=== PATIENT | female | born 1945 | race Caucasian/White ===

== ENCOUNTER 2021-01-01 16:53 | Inpatient (IN) ==
[2021-01-01 17:33] LABS: Basophils # 0.1 K/mcL (0.0-0.2); Basophils % 0.2 %; Hematocrit 40.1 % (35.3-44.9); Hemoglobin 13.4 g/dL (11.5-15.4); Immature Granulocytes % 1.5 % (0-4); Lymphocytes # 1.6 K/mcL (0.6-4.6); Lymphocytes % 5.6 %; Mean Corpuscular HGB Conc 33.4 g/dL (31.6-35.5); Mean Corpuscular Hemoglobin 33.2 pg (28.0-33.3); Mean Corpuscular Volume 99.3 fL (83.0-100.0); Mean Platelet Volume 8.9 fL (9.4-12.4); Monocytes # 1.2 K/mcL (0.0-1.3); Monocytes % 4.3 %; Neutrophils # 24.8 K/mcL (1.6-8.9); Platelet Count 285 K/mcL (140-400); Red Blood Count 4.04 M/mcL (3.82-4.97); Red Cell Distribution Width 13.2 % (11.5-14.5); Segmented Neutrophils % 88.4 %
[2021-01-01 17:51] LABS: Alanine Aminotransferase 30 Units/L (7-52); Albumin 3.8 g/dL (3.5-5.7); Albumin/Globulin Ratio 1.2 (1.1-2.2); Alkaline Phosphatase 70 Units/L (34-104); Aspartate Amino Transferase 26 Units/L (13-39); BUN/Creatinine Ratio 28 (6-26); Bilirubin,Total 1.8 mg/dL (0.3-1.0); Blood Urea Nitrogen 27 mg/dL (8-23); Calcium 8.8 mg/dL (8.6-10.3); Carbon Dioxide 27 mEq/L (23-29); Chloride 93 mEq/L (98-107); Globulin 3.2 g/dL (2.4-3.5); Glucose 87 mg/dL (70-105); Macrocytosis Present (Not Present); Magnesium 1.5 mg/dL (1.6-2.6); Osmolality,Calculated 274 (280-300); Platelet Estimate Normal (Normal); Potassium 4.2 mEq/L (3.5-5.1); Sodium 130 mEq/L (136-145); eGFR For African Americans > 60 (> 60); eGFR For Non-African Americans 56 (> 60)
[2021-01-01 18:28] LABS: INR 1.3; Prothrombin Time 15.2 Seconds (9.4-12.1)
[2021-01-01 18:31] LABS: Activated Partial Thrombo Time 26.6 Seconds (26.0-36.0)
[2021-01-01 18:48] LABS: Bilirubin,Urine Negative (Negative); Blood,Urine Trace-intact (Negative); Clarity,Urine Slightly Cloudy (Clear); Glucose,Urine (UA) 100 mg/dL (Normal); Ketones,Urine Negative (Negative); Leukocyte Esterase,Urine Small (Negative); Nitrite,Urine Negative (Negative); Protein,Urine 30 mg/dL (Neg-Trace); Specific Gravity,Urine >= 1.030 (1.010-1.025); Urobilinogen,Urine Normal (Normal)
[2021-01-01 18:53] LABS: Color,Urine Yellow (Yellow)
[2021-01-01 18:55] LABS: Bacteria,Urine Few per hpf (None-Few); RBC,Urine 0-3 per hpf (0-3); Squamous Epithelial Cell,Urine Few per hpf (None-Few)
[2021-01-01] MEDS ORDERED: MetroNIDAZOLE 500 MG/100 ML 500 MG/100 ML BAG IVPB ONE (21:03)
[2021-01-01] MEDS ORDERED: Piperacillin/Tazobactam 3.375 GM in 0.9 % Sodium Chloride Mini Bag 100 ML IVPB ONE (21:03)
[2021-01-01] MEDS ORDERED: Naloxone 0.4 MG/ML INJ IVP PRN (22:02)
[2021-01-01] MEDS: Ondansetron 4 MG/2 ML VIAL IVP PRN (22:12)
[2021-01-01] MEDS: 0.9 % Sodium Chloride 1,000 ML IVC SCH (22:30)
[2021-01-01] MEDS: Acetaminophen 325 MG TABLET PO PRN (22:30)
[2021-01-02 04:53] LABS: Basophils # 0.1 K/mcL (0.0-0.2); Basophils % 0.3 %; Eosinophils # 0.1 K/mcL (0.0-0.6); Eosinophils % 0.5 %; Hematocrit 42.7 % (35.3-44.9); Hemoglobin 13.8 g/dL (11.5-15.4); Immature Granulocytes % 4.6 % (0-4); Lymphocytes # 1.4 K/mcL (0.6-4.6); Lymphocytes % 5.3 %; Mean Corpuscular HGB Conc 32.3 g/dL (31.6-35.5); Mean Corpuscular Hemoglobin 32.7 pg (28.0-33.3); Mean Corpuscular Volume 101.2 fL (83.0-100.0); Mean Platelet Volume 8.8 fL (9.4-12.4); Monocytes # 1.1 K/mcL (0.0-1.3); Monocytes % 4.2 %; Platelet Count 250 K/mcL (140-400); Red Blood Count 4.22 M/mcL (3.82-4.97); Red Cell Distribution Width 13.2 % (11.5-14.5); Segmented Neutrophils % 85.1 %; White Blood Count 25.8 K/mcL (4.3-11.1)
[2021-01-02 04:58] LABS: Macrocytosis Present (Not Present); Platelet Estimate Normal (Normal)
[2021-01-02 05:07] LABS: BUN/Creatinine Ratio 26 (6-26); Blood Urea Nitrogen 23 mg/dL (8-23); Calcium 8.9 mg/dL (8.6-10.3); Carbon Dioxide 28 mEq/L (23-29); Chloride 97 mEq/L (98-107); Glucose 97 mg/dL (70-105); Osmolality,Calculated 282 (280-300); Potassium 4.3 mEq/L (3.5-5.1); Sodium 134 mEq/L (136-145); eGFR For African Americans > 60 (> 60); eGFR For Non-African Americans > 60 (> 60)
[2021-01-02] MEDS: Acetaminophen 325 MG TABLET PO PRN ×2 (05:56→20:17)
[2021-01-02] MEDS: 0.9 % Sodium Chloride 1,000 ML IVC SCH ×3 (05:57→20:16)
[2021-01-02] MEDS ORDERED: *HR* Glimepiride 2 MG TABLET PO SCH (08:00)
[2021-01-02] MEDS: hydrALAZINE 25 MG TABLET PO SCH ×2 (08:53→20:17)
[2021-01-02] MEDS: Isosorbide MONOnitrate (24 HR) 60 MG TAB.ER.24H PO SCH (08:53)
[2021-01-02] MEDS: Renal Vitamin 1 CAP CAPSULE PO SCH (08:53)
[2021-01-02] MEDS: Aspirin Enteric Coated 325 MG Tablet PO SCH (08:53)
[2021-01-02] MEDS: Gabapentin 300 MG CAPSULE PO SCH ×2 (08:53→20:17)
[2021-01-02] MEDS: Loratadine 10 MG TABLET PO SCH (08:54)
[2021-01-02] MEDS: Magnesium Oxide 400 MG TABLET PO SCH (08:54)
[2021-01-02] MEDS: Metoprolol 100 MG TABLET PO SCH ×2 (08:54→20:18)
[2021-01-02] MEDS: Multivit/Ca/Min/Fe/FA 1 TAB TABLET PO SCH (08:54)
[2021-01-02] MEDS: Fluticasone Propionate Nasal 50 MCG/SPRAY BOTTLE NS SCH (08:55)
[2021-01-02] MEDS: IRBESARTAN 300 MG PO SCH (08:55)
[2021-01-02] MEDS: FISH OIL 500 MG PO SCH (08:55)
[2021-01-02] MEDS: Tiotropium 10 INH DOSE IH SCH (09:27)
[2021-01-02] MEDS: Budesonide/Formoterol 160/4.5 1 PUFF INH IH SCH ×2 (09:27→20:09)
[2021-01-02] MEDS: Ondansetron 4 MG/2 ML VIAL IVP PRN (12:01)
[2021-01-02] MEDS: MetroNIDAZOLE 500 MG/100 ML 500 MG/100 ML BAG IVPB SCH ×2 (12:58→20:16)
[2021-01-02] MEDS ORDERED: D5% in Water 1,000 ML IVC PRN (14:05)
[2021-01-02] MEDS ORDERED: Dextrose Gel 15 GM/37.5 ML TUBE PO PRN ×2 (14:05)
[2021-01-02] MEDS ORDERED: *HR* Dextrose 50 % in Water (Vial) 50 ML VIAL IVP PRN (14:05)
[2021-01-02 14:31] LABS: Bilirubin,Urine Negative (Negative); Blood,Urine Moderate (Negative); Clarity,Urine Slightly Cloudy (Clear); Color,Urine Yellow (Yellow); Glucose,Urine (UA) Normal (Normal); Ketones,Urine Negative (Negative); Leukocyte Esterase,Urine Trace (Negative); Nitrite,Urine Negative (Negative); PH,Urine 5.5 pH Units (5.0-8.0); Protein,Urine 30 mg/dL (Neg-Trace); Specific Gravity,Urine 1.025 (1.010-1.025); Urobilinogen,Urine Normal (Normal)
[2021-01-02 15:04] LABS: Amorphous Sediment,Urine Few per hpf (None-Few); Bacteria,Urine Many per hpf (None-Few); Squamous Epithelial Cell,Urine Moderate per hpf (None-Few)
[2021-01-02] MEDS: Insulin LISPRO 300 UNITS/3 ML VIAL SUBQ SCH (16:43)
[2021-01-02 22:49] LABS: Estimated Average Glucose 126 mg/dl
[2021-01-03] MEDS: MetroNIDAZOLE 500 MG/100 ML 500 MG/100 ML BAG IVPB SCH ×3 (04:07→20:16)
[2021-01-03] MEDS: *HR* Enoxaparin 40 MG/0.4 ML SYRINGE SQ SCH (04:07)
[2021-01-03 06:49] LABS: Hematocrit 34.3 % (35.3-44.9); Hemoglobin 11.3 g/dL (11.5-15.4); Mean Corpuscular HGB Conc 32.9 g/dL (31.6-35.5); Mean Corpuscular Hemoglobin 32.9 pg (28.0-33.3); Platelet Count 222 K/mcL (140-400); Red Blood Count 3.43 M/mcL (3.82-4.97); Red Cell Distribution Width 13.2 % (11.5-14.5)
[2021-01-03 07:06] LABS: BUN/Creatinine Ratio 31 (6-26); Blood Urea Nitrogen 18 mg/dL (8-23); Calcium 8.3 mg/dL (8.6-10.3); Carbon Dioxide 24 mEq/L (23-29); Chloride 101 mEq/L (98-107); Glucose 133 mg/dL (70-105); Magnesium 1.8 mg/dL (1.6-2.6); Osmolality,Calculated 278 (280-300); Potassium 3.5 mEq/L (3.5-5.1); Sodium 132 mEq/L (136-145); eGFR For African Americans > 60 (> 60); eGFR For Non-African Americans > 60 (> 60)
[2021-01-03] MEDS: 0.9 % Sodium Chloride 1,000 ML IVC SCH ×3 (07:10→20:14)
[2021-01-03] MEDS: Insulin LISPRO 300 UNITS/3 ML VIAL SUBQ SCH ×3 (08:22→16:11)
[2021-01-03] MEDS: hydrALAZINE 25 MG TABLET PO SCH ×2 (08:23→20:17)
[2021-01-03] MEDS: Gabapentin 300 MG CAPSULE PO SCH ×2 (08:24→20:16)
[2021-01-03] MEDS: Aspirin Enteric Coated 325 MG Tablet PO SCH (08:24)
[2021-01-03] MEDS: Multivit/Ca/Min/Fe/FA 1 TAB TABLET PO SCH (08:24)
[2021-01-03] MEDS: Magnesium Oxide 400 MG TABLET PO SCH (08:24)
[2021-01-03] MEDS: Renal Vitamin 1 CAP CAPSULE PO SCH (08:24)
[2021-01-03] MEDS: Loratadine 10 MG TABLET PO SCH (08:24)
[2021-01-03] MEDS: Metoprolol 100 MG TABLET PO SCH ×2 (08:24→20:17)
[2021-01-03] MEDS: Isosorbide MONOnitrate (24 HR) 60 MG TAB.ER.24H PO SCH (08:24)
[2021-01-03] MEDS: FISH OIL 500 MG PO SCH (08:25)
[2021-01-03] MEDS: Fluticasone Propionate Nasal 50 MCG/SPRAY BOTTLE NS SCH (08:25)
[2021-01-03] MEDS: IRBESARTAN 300 MG PO SCH (08:25)
[2021-01-03] MEDS: Tiotropium 10 INH DOSE IH SCH (09:41)
[2021-01-03] MEDS: Budesonide/Formoterol 160/4.5 1 PUFF INH IH SCH ×2 (09:42→19:02)
[2021-01-03] MEDS: Ondansetron 4 MG/2 ML VIAL IVP PRN (12:01)
[2021-01-03] MEDS: Metoclopramide 10 MG/2 ML VIAL IVP PRN (16:12)
[2021-01-04] MEDS: 0.9 % Sodium Chloride 1,000 ML IVC SCH (05:17)
[2021-01-04] MEDS: MetroNIDAZOLE 500 MG/100 ML 500 MG/100 ML BAG IVPB SCH ×3 (05:18→20:25)
[2021-01-04] MEDS: *HR* Enoxaparin 40 MG/0.4 ML SYRINGE SQ SCH (05:19)
[2021-01-04 06:05] LABS: Hematocrit 31.7 % (35.3-44.9); Hemoglobin 10.5 g/dL (11.5-15.4); Mean Corpuscular HGB Conc 33.1 g/dL (31.6-35.5); Mean Corpuscular Hemoglobin 32.5 pg (28.0-33.3); Mean Corpuscular Volume 98.1 fL (83.0-100.0); Mean Platelet Volume 8.9 fL (9.4-12.4); Platelet Count 222 K/mcL (140-400); Red Blood Count 3.23 M/mcL (3.82-4.97); Red Cell Distribution Width 13.2 % (11.5-14.5); White Blood Count 16.1 K/mcL (4.3-11.1)
[2021-01-04 06:21] LABS: BUN/Creatinine Ratio 24 (6-26); Blood Urea Nitrogen 12 mg/dL (8-23); Calcium 7.9 mg/dL (8.6-10.3); Carbon Dioxide 26 mEq/L (23-29); Chloride 100 mEq/L (98-107); Glucose 126 mg/dL (70-105); Magnesium 1.9 mg/dL (1.6-2.6); Osmolality,Calculated 273 (280-300); Potassium 3.2 mEq/L (3.5-5.1); Sodium 131 mEq/L (136-145); eGFR For African Americans > 60 (> 60); eGFR For Non-African Americans > 60 (> 60)
[2021-01-04] MEDS: Insulin LISPRO 300 UNITS/3 ML VIAL SUBQ SCH ×3 (08:16→17:37)
[2021-01-04] MEDS: Budesonide/Formoterol 160/4.5 1 PUFF INH IH SCH ×2 (09:06→20:12)
[2021-01-04] MEDS: Tiotropium 10 INH DOSE IH SCH (09:06)
[2021-01-04] MEDS: Aspirin Enteric Coated 325 MG Tablet PO SCH (09:41)
[2021-01-04] MEDS: hydrALAZINE 25 MG TABLET PO SCH ×2 (09:41→22:06)
[2021-01-04] MEDS: Metoprolol 100 MG TABLET PO SCH ×2 (09:41→19:49)
[2021-01-04] MEDS: Renal Vitamin 1 CAP CAPSULE PO SCH (09:41)
[2021-01-04] MEDS: Isosorbide MONOnitrate (24 HR) 60 MG TAB.ER.24H PO SCH (09:41)
[2021-01-04] MEDS: Gabapentin 300 MG CAPSULE PO SCH ×2 (09:41→20:25)
[2021-01-04] MEDS: Loratadine 10 MG TABLET PO SCH (09:41)
[2021-01-04] MEDS: Multivit/Ca/Min/Fe/FA 1 TAB TABLET PO SCH (09:41)
[2021-01-04] MEDS: Magnesium Oxide 400 MG TABLET PO SCH (09:41)
[2021-01-04] MEDS: FISH OIL 500 MG PO SCH (09:42)
[2021-01-04] MEDS: IRBESARTAN 300 MG PO SCH (09:42)
[2021-01-04] MEDS: Fluticasone Propionate Nasal 50 MCG/SPRAY BOTTLE NS SCH (09:43)
[2021-01-04] MEDS ORDERED: Perflutren Lipid Microsphere 1.3 ML in 0.9 % Sodium Chloride 8.7 ML IVP PRN (15:01)
[2021-01-04] MEDS: Metoclopramide 10 MG/2 ML VIAL IVP PRN (17:38)
[2021-01-04] MEDS ORDERED: *HR* Metoprolol 5 MG/5 ML VIAL IVP ONE (17:59)
[2021-01-04] MEDS: DilTIAZem 50 MG in 0.9 % Sodium Chloride 40 ML IVC SCH (18:55)
[2021-01-05] MEDS: DilTIAZem 50 MG in 0.9 % Sodium Chloride 40 ML IVC SCH (03:34)
[2021-01-05] MEDS: MetroNIDAZOLE 500 MG/100 ML 500 MG/100 ML BAG IVPB SCH ×3 (05:10→21:46)
[2021-01-05 05:16] LABS: Hematocrit 31.2 % (35.3-44.9); Hemoglobin 10.5 g/dL (11.5-15.4); Mean Corpuscular HGB Conc 33.7 g/dL (31.6-35.5); Mean Corpuscular Hemoglobin 32.5 pg (28.0-33.3); Mean Corpuscular Volume 96.6 fL (83.0-100.0); Mean Platelet Volume 9.1 fL (9.4-12.4); Platelet Count 254 K/mcL (140-400); Red Blood Count 3.23 M/mcL (3.82-4.97); Red Cell Distribution Width 13.1 % (11.5-14.5); White Blood Count 13.2 K/mcL (4.3-11.1)
[2021-01-05 05:33] LABS: BUN/Creatinine Ratio 24 (6-26); Blood Urea Nitrogen 10 mg/dL (8-23); Calcium 7.9 mg/dL (8.6-10.3); Carbon Dioxide 27 mEq/L (23-29); Chloride 97 mEq/L (98-107); Glucose 148 mg/dL (70-105); Magnesium 1.9 mg/dL (1.6-2.6); Osmolality,Calculated 276 (280-300); Potassium 3.2 mEq/L (3.5-5.1); Sodium 132 mEq/L (136-145); eGFR For African Americans > 60 (> 60); eGFR For Non-African Americans > 60 (> 60)
[2021-01-05] MEDS ORDERED: *HR* Enoxaparin 80 MG/0.8 ML SYRINGE SQ SCH (06:00)
[2021-01-05] MEDS: Metoprolol 100 MG TABLET PO SCH ×2 (06:29→21:46)
[2021-01-05 06:40] LABS: Troponin I < 0.03 ng/mL (< 0.04)
[2021-01-05] MEDS: Tiotropium 10 INH DOSE IH SCH (07:21)
[2021-01-05] MEDS: Budesonide/Formoterol 160/4.5 1 PUFF INH IH SCH ×2 (07:22→20:01)
[2021-01-05] MEDS: Multivit/Ca/Min/Fe/FA 1 TAB TABLET PO SCH (09:15)
[2021-01-05] MEDS: Renal Vitamin 1 CAP CAPSULE PO SCH (09:16)
[2021-01-05] MEDS: Aspirin Enteric Coated 325 MG Tablet PO SCH (09:16)
[2021-01-05] MEDS: Loratadine 10 MG TABLET PO SCH (09:16)
[2021-01-05] MEDS: hydrALAZINE 25 MG TABLET PO SCH ×2 (09:16→21:45)
[2021-01-05] MEDS: Isosorbide MONOnitrate (24 HR) 60 MG TAB.ER.24H PO SCH (09:16)
[2021-01-05] MEDS: Magnesium Oxide 400 MG TABLET PO SCH (09:16)
[2021-01-05] MEDS: Gabapentin 300 MG CAPSULE PO SCH ×2 (09:16→21:46)
[2021-01-05] MEDS: IRBESARTAN 300 MG PO SCH (09:17)
[2021-01-05] MEDS: FISH OIL 500 MG PO SCH (09:17)
[2021-01-05] MEDS: Fluticasone Propionate Nasal 50 MCG/SPRAY BOTTLE NS SCH (09:17)
[2021-01-05] MEDS: Insulin LISPRO 300 UNITS/3 ML VIAL SUBQ SCH ×3 (09:20→17:28)
[2021-01-05] MEDS: Metoclopramide 10 MG/2 ML VIAL IVP PRN (12:38)
[2021-01-05] MEDS: *HR* LORazepam 0.5 MG TABLET PO PRN ×2 (15:12→21:46)
[2021-01-05] MEDS: Apixaban 5 MG TABLET PO SCH (21:45)
[2021-01-06] MEDS: MetroNIDAZOLE 500 MG/100 ML 500 MG/100 ML BAG IVPB SCH ×2 (05:40→12:43)
[2021-01-06] MEDS: Budesonide/Formoterol 160/4.5 1 PUFF INH IH SCH (08:41)
[2021-01-06] MEDS: Tiotropium 10 INH DOSE IH SCH (08:41)
[2021-01-06] MEDS: Apixaban 5 MG TABLET PO SCH (10:15)
[2021-01-06] MEDS: Metoprolol 100 MG TABLET PO SCH (10:15)
[2021-01-06] MEDS: Aspirin Enteric Coated 325 MG Tablet PO SCH (10:15)
[2021-01-06] MEDS: hydrALAZINE 25 MG TABLET PO SCH (10:15)
[2021-01-06] MEDS: Isosorbide MONOnitrate (24 HR) 60 MG TAB.ER.24H PO SCH (10:15)
[2021-01-06] MEDS: Gabapentin 300 MG CAPSULE PO SCH (10:15)
[2021-01-06] MEDS: Multivit/Ca/Min/Fe/FA 1 TAB TABLET PO SCH (10:15)
[2021-01-06] MEDS: Magnesium Oxide 400 MG TABLET PO SCH (10:15)
[2021-01-06] MEDS: Loratadine 10 MG TABLET PO SCH (10:15)
[2021-01-06] MEDS: Renal Vitamin 1 CAP CAPSULE PO SCH (10:15)
[2021-01-06] MEDS: Fluticasone Propionate Nasal 50 MCG/SPRAY BOTTLE NS SCH (10:16)
[2021-01-06] MEDS: Insulin LISPRO 300 UNITS/3 ML VIAL SUBQ SCH ×2 (10:16→12:21)
[2021-01-06] MEDS: FISH OIL 500 MG PO SCH (10:16)
[2021-01-06] MEDS: IRBESARTAN 300 MG PO SCH (10:16)
[2021-01-06 11:40] VITALS: BP 158/77
[2021-01-06] MEDS: Ondansetron 4 MG/2 ML VIAL IVP PRN (12:41)
[2021-01-06] MEDS ORDERED: DilTIAZem CD (24hr) 300 MG CAP.ER.24H PO SCH (14:00)
[2021-01-07] MEDS ORDERED: DilTIAZem CD (24hr) 300 MG CAP.ER.24H PO SCH (14:00)
== END 2021-01-06 16:29 | disposition home or self-care (01) | DRG 720 ==
LOC: INPGRE 16:53 → EMEROOGRE 16:53 → INPGRE 21:45 → SUATTDRO 01-02 12:17
PROVIDERS: ADMIT Family Medicine; ATTEND Family Medicine